=== PATIENT | male | born 1945 | race Caucasian/White ===

== ENCOUNTER 2018-04-13 20:04 | Inpatient (IN) ==
--- NOTE | 2018-04-13 21:08 | DR.GENAD ---
HPI - PCP Primary Care Physician: PARVEEN - HPI Comment HPI Comment: HISTORY BELOW. - Complaint/Symptoms Chief Complaint Doctors Comments: PATIENT OVERDOSE ON KLONAPIN. PATIENT IS CONFUSE AND ATAXIC. HE IS CONFUSE. HAVE N/V FOR FEW DAYS. TOOK OVERDOSE OF HIS MEDICATION TO MAKE HIM FEEL BETTER. HAVE HISTOEY OF DRUG DEPENDENCY. Chief Complaint:: FAMILY STATES HE GOT KLONOPIN FILLED A COUPLE DAYS AGO AND NOW THERE IS ONE LEFT IN THE BOTTLE, PT STATES HE FLUSHED MEDS DOWN THE TOILET BUT FAMIL STATES NO, PTS PUPILS ARE PIN POINT. PT FELL TWICE TODAY, ABRASION NOTED TO LEFT ARM FAMILY STATES HE BUMPED HEAD ALSO. STATES WAS SEEN IN [facility] BUT SENT HOME. Self Treatment fo Chief Complaint: KLONOPIN - Nurses notes reviewed Nurses Notes Review: Yes - Source History Provided: Patient - Mode of Arrival Mode of Arrival: Ambulatory - Timing Onset of Chief Complaint: 04/13/18 Came on: Suddenly - Duration Duration: Constant Duration: Days - Severity Severity: Moderate PMH - PMH Past Medical History: Yes Past Medical History: Anxiety, Depression, Hypertension, Kidney Stones Past Medical History Comment: 4 DETOXES. ULCERATIVE COLITIS. LOW POTASSIUM Past Surgical History: Yes Surgical History: Lithotripsy Past Surgical History Comment: LEFT KNEE. HERNIA - Family History History of Family Medical Conditions: No (UNK) Family Medical History: Hypertension - Social History Does patient currently use any type of tobacco product: No Have you used tobacco products in the last 12 months: No Type of Tobacco Use: None Does any household member use tobacco: No Alcohol Use: None Do you use any recreational Drugs:: No Lives With: Family Lives Where: Home - infectious screening In the last 2 months have you had wt loss of >10#?: NO Have you had fever, night sweats or hemotysis?: No Have you traveled outside the country in the last 6 months?: No Isolation: Standard ROS - Review of Systems Constitutional: No Symptoms Reported Eyes: No Symptoms Reported ENTM: No Symptoms Reported. negative: Ear Pain, Nose Discharge, Nose Congestion , Throat Pain Respiratoy: Non-Productive Cough. negative: Productive Cough, Short of Breath, Wheezing, Hemoptysis Cardiovascular: No Symptoms Reported Gastrointestinal/Abdominal: Abdominal Pain, Diarrhea Genitourinary: No Symptoms Reported Neurological: Headache, Weakness, Dizziness, Problems Walking Musculoskeletal: No Symptoms Reported Integumentary: No Symptoms Reported Hematologic/Lymphatic: No Symptoms Reported Endocrine: No Symptoms Reported All Other Systems: Reviewed and Negative PE - Vital Signs Vitals: Temperature 97.7 F Pulse Rate 50 Respiratory Rate 16 Blood Pressure [Right Arm] 140/74 Blood Pressure 140/65 O2 Sat by Pulse Oximetry 98 - General Limitations: No Limitations General Appearance: Alert - Head Head Exam: Normal Inspection - Eyes Eye exam: Normal Appearance - ENT ENT Exam: Normal External Ear Exam External Ear Exam: Normal External Inspection TM/Canal Exam: Bilateral Normal Nose Exam: Normal Nose Exam Mouth Exam: Normal Inspection Throat Exam: Normal Inspection - Neck Neck Exam: Trachea Midline - Chest Chest Inspection: Symmetric Chest Wall Rise - Respiratory Respiratory Exam: Normal Lung Sounds Bilat Respiratory Exam: Bilateral Rhonchi, Lower Rhonchi - Cardiovascular Cardiovascular Exam: Bradycardia - Abdominal Exam Abdominal Exam: Normal Bowel Sounds, Soft. negative: Tenderness - Extremities Extremities Exam: Normal Inspection - Neurologic Neurological Exam: Alert, Oriented X3 - Psychiatric Psychiatric Exam: Depressed, Anxious - Skin Skin Exam: Normal Color MDM - Additional Information Additional Information Obtained From: Family - Differential Diagnosis Differential Diagnosis: DEHYDRATION, DRUG OVERDISE, DEPRESSION ABDOMINAL PAIN Course - Treatment Treatment: SEE ORDERS. - Consultation Consultation Comments: DISCUSS PATIENT WITH DR. SAINI. HE WILL ADMIT PATIENT. - Education/Counseling Education/Counseling: Patient, Family, Education Educated On: Diagnosis, Needs for Follow Up ROR - Labs Reviewed Laboratory Results Reviewed?: Yes Result Diagrams: 04/14/18 05:27 04/14/18 05:27 Laboratory: WBC 5.2 X10^3/uL (3.6-10.0) 04/13/18 21:14 RBC 4.73 X10^6/uL (4.7-6.0) 04/13/18 21:14 Hgb 11.4 g/dL (13.5-18.0) L 04/13/18 21:14 Hct 35.9 % (42.0-54.0) L 04/13/18 21:14 MCV 75.9 fL (80.0-100.0) L 04/13/18 21:14 MCH 24.2 pg (27.0-34.0) L 04/13/18 21:14 MCHC 31.9 g/dL (33.0-35.0) L 04/13/18 21:14 RDW 20.6 % (11.6-16.5) H 04/13/18 21:14 Plt Count 289 X10^3/uL (150.0-450.0) 04/13/18 21:14 Plt Count Comment Adequate (ADEQUATE) 04/13/18 21:14 MPV 7.7 fL (7.4-11.0) 04/13/18 21:14 Neut % (Auto) 61.8 % (42.0-75.0) 04/13/18 21:14 Lymph % (Auto) 27.3 % (21.0-51.0) 04/13/18 21:14 [place] % (Auto) 9.4 % (0.0-13.0) 04/13/18 21:14 Eos % (Auto) 0.7 % (0.9-2.9) L 04/13/18 21:14 Baso % (Auto) 0.8 % (0.2-1.0) 04/13/18 21:14 Neut # (Auto) 3.2 x10^3/uL (2.2-4.8) 04/13/18 21:14 Lymph # (Auto) 1.4 X10^3/uL (1.3-2.9) 04/13/18 21:14 [place] # (Auto) 0.5 x10^3/uL (0.3-0.8) 04/13/18 21:14 Eos # (Auto) 0.0 x10^3/uL (0.0-0.2) 04/13/18 21:14 Baso # (Auto) 0.0 X10^3/uL (0.0-0.1) 04/13/18 21:14 Absolute Nucleated RBC 0.0 /100WBC 04/13/18 21:14 Plt Morphology Comment Normal (NORMAL) 04/13/18 21:14 RBC Morphology Abnormal (NORMAL) 04/13/18 21:14 Anisocytosis 1+ A 04/13/18 21:14 Sodium 140 mmol/L (136-145) 04/13/18 21:14 Corrected Sodium TNP 04/13/18 21:14 Potassium 2.9 mmol/L (3.5-5.1) L* 04/13/18 21:14 Chloride 105 mmol/L (98-107) 05/29/18 21:14 Carbon Dioxide 26.9 mmol/L (21-32) 04/13/18 21:14 BUN 23 mg/dL (7-18) H 04/13/18 21:14 Creatinine 2.35 mg/dL (0.70-1.30) H 04/13/18 21:14 Est GFR (MDRD) Af Amer 35 (>60) L 04/13/18 21:14 Est GFR (MDRD) Non-Af 29 (>60) L 04/13/18 21:14 Glucose 98 mg/dL (65-99) 04/13/18 21:14 Calcium 8.3 mg/dL (8.5-10.1) L 04/13/18 21:14 Corrected Calcium 9.1 mg/dL (8.5-10.1) 04/13/18 21:14 Magnesium 2.3 mg/dL (1.7-2.9) 04/13/18 21:14 Iron 50 ug/dL (50-175) 04/13/18 21:14 Total Bilirubin 0.40 mg/dL (0.2-1.0) 04/13/18 21:14 AST 6 Units/L (15-37) L 04/13/18 21:14 ALT 10 Units/L (12-78) L 04/13/18 21:14 Alkaline Phosphatase 84 Units/L (46-116) 04/13/18 21:14 Creatine Kinase 25 Units/L (39-308) L 04/13/18 21:14 CK-MB (CK-2) < 1.0 ng/mL (0-4.0) 04/13/18 21:14 CK/CKMB % Calc 4.0 % (<4) 04/13/18 21:14 Troponin I < 0.02 ng/mL (0-1.5) 04/13/18 21:14 Total Protein 6.5 g/dL (6.4-8.2) 04/13/18 21:14 Albumin 3.0 g/dL (3.4-5.0) L 04/13/18 21:14 Globulin 3.5 g/dL (2.5-4.5) 04/13/18 21:14 Albumin/Globulin Ratio 0.9 Ratio (1.1-2.1) L 04/13/18 21:14 Amylase 71 Units/L (25-115) 04/13/18 21:14 Lipase 173 Units/L (73-393) 04/13/18 21:14 Specimen Type Clean catch urine 04/13/18 21:36 Urine Color Yellow (YELLOW) 04/13/18 21:36 Urine Appearance Clear (CLEAR) 04/13/18 21:36 Urine pH 6.0 (5.0 - 8.0) 04/13/18 21:36 Ur Specific [place] 1.010 (1.000-1.030) 04/13/18 21:36 Urine Protein 1+ (NEGATIVE) 04/13/18 21:36 Urine Glucose (UA) Negative (NEGATIVE) 04/13/18 21:36 Urine Ketones Negative (NEGATIVE) 04/13/18 21:36 Urine Occult Blood Negative (NEGATIVE) 04/13/18 21:36 Urine Nitrite Negative (NEGATIVE) 04/13/18 21:36 Urine Bilirubin Negative (NEGATIVE) 04/13/18 21:36 Urine Urobilinogen Normal (NORMAL) 04/13/18 21:36 Ur Leukocyte Esterase 1+ (NEGATIVE) 04/13/18 21:36 Urine RBC None seen /HPF (NONE SEEN) 04/13/18 21:36 Urine WBC 3-5 /HPF (NONE SEEN) 04/13/18 21:36 Ur Squamous Epith Cells Few /HPF (NEGATIVE) 04/13/18 21:36 Urine Bacteria Trace /HPF (NEGATIVE) 04/13/18 21:36 Hyaline Casts Few /LPF (NEGATIVE) 04/13/18 21:36 Urine Mucus Few /HPF (NEGATIVE) 04/13/18 21:36 Ur Culture Indicated? No/not indicated 04/13/18 21:36 Salicylates < 2.8 mg/dL (2.8-20) L 04/13/18 21:14 Urine Opiates Screen Negative (NEG=<300) 04/13/18 21:36 Urine Methadone Screen Negative (NEG=<300) 04/13/18 21:36 Acetaminophen 0.0 ug/mL (10-30) L 04/13/18 21:14 Ur Barbiturates Screen Negative (NEG=<200) 04/13/18 21:36 Ur Phencyclidine Scrn Negative (NEG=<25) 04/13/18 21:36 Ur Amphetamines Screen Negative (NEG=<1000) 04/13/18 21:36 U Benzodiazepines Scrn Positive (NEG=<200) 04/13/18 21:36 Urine Cocaine Screen Negative (NEG=<300) 04/13/18 21:36 U Marijuana (THC) Screen Negative (NEG=<50) 04/13/18 21:36 Ethyl Alcohol mg/dL < 3 mg/dL (0-19.9) 04/13/18 21:14 - XRAY XRAY Interpreted by: Radiologist XRAY Findings: REPORT DISCUSS WITH PATIENT. - EKG Rhythm: NSR (EKG NOTED) - Diagnosis Discharge Problem: Dehydration, Hypokalemia Drug overdose Qualifiers: Encounter type: initial encounter Injury intent: undetermined intent Qualified Code(s): T50.904A - Poisoning by unspecified drugs, medicaments and biological substances, undetermined, initial encounter - Discharge Plan Disposition: ADMITTED INPATIENT Condition: Stable - Follow ups/Referrals - Instructions
[2018-04-13 21:26] LABS: BASOPHILS % (AUTO) 0.8 % (0.2-1.0); EOSINOPHILS % (AUTO) 0.7 % (0.9-2.9); HEMATOCRIT 35.9 % (42.0-54.0); HEMOGLOBIN 11.4 g/dL (13.5-18.0); LYMPHOCYTES # (AUTO) 1.4 X10^3/uL (1.3-2.9); LYMPHOCYTES % (AUTO) 27.3 % (21.0-51.0); MEAN CORPUSCULAR HEMOGLOBIN 24.2 pg (27.0-34.0); MEAN CORPUSCULAR HGB CONC 31.9 g/dL (33.0-35.0); MEAN CORPUSCULAR VOLUME 75.9 fL (80.0-100.0); MEAN PLATELET VOLUME 7.7 fL (7.4-11.0); MONOCYTES # (AUTO) 0.5 x10^3/uL (0.3-0.8); MONOCYTES % (AUTO) 9.4 % (0.0-13.0); NEUTROPHILS # (AUTO) 3.2 x10^3/uL (2.2-4.8); NEUTROPHILS % (AUTO) 61.8 % (42.0-75.0); PLATELET COUNT 289 X10^3/uL (150.0-450.0); RED BLOOD COUNT 4.73 X10^6/uL (4.7-6.0); RED CELL DISTRIBUTION WIDTH 20.6 % (11.6-16.5); WHITE BLOOD COUNT 5.2 X10^3/uL (3.6-10.0)
[2018-04-13 21:33] LABS: BLOOD ALCOHOL < 3 mg/dL (0-19.9)
[2018-04-13 21:36] LABS: IRON 50 ug/dL (50-175); SALICYLATE < 2.8 mg/dL (2.8-20)
[2018-04-13 21:45] LABS: BILIRUBIN,URINE NEGATIVE (NEGATIVE); BLOOD/HEMOGLOBIN,URINE NEGATIVE (NEGATIVE); GLUCOSE, URINE NEGATIVE (NEGATIVE); KETONES,URINE NEGATIVE (NEGATIVE); LEUKOCYTE ESTERASE ,URINE 1+ (NEGATIVE); NITRITES,URINE NEGATIVE (NEGATIVE); PROTEIN,URINE 1+ (NEGATIVE); UROBILINOGEN,URINE NORMAL (NORMAL)
[2018-04-13 21:46] LABS: ALANINE AMINOTRANSFERASE 10 Units/L (12-78); ALKALINE PHOSPHATASE 84 Units/L (46-116); AMYLASE 71 Units/L (25-115); ASPARTATE AMINO TRANSFERASE 6 Units/L (15-37); BLOOD UREA NITROGEN 23 mg/dL (7-18); CALCIUM 8.3 mg/dL (8.5-10.1); CARBON DIOXIDE 26.9 mmol/L (21-32); CHLORIDE 105 mmol/L (98-107); COR CA(FOR HYPOALB) 9.1 mg/dL (8.5-10.1); CREATINE KINASE 25 Units/L (39-308); CREATINE KINASE MB < 1.0 ng/mL (0-4.0); CREATININE 2.35 mg/dL (0.70-1.30); LIPASE 173 Units/L (73-393); MAGNESIUM 2.3 mg/dL (1.7-2.9); SODIUM 140 mmol/L (136-145); TOTAL PROTEIN 6.5 g/dL (6.4-8.2); TROPONIN I < 0.02 ng/mL (0-1.5); eGFR NON BLACK RACES 29 (>60)
[2018-04-13 21:55] LABS: APPEARANCE,URINE CLEAR (CLEAR); BACTERIA,URINE TRACE /HPF (NEGATIVE); COLOR,URINE YELLOW (YELLOW); HYALINE CASTS, URINE FEW /LPF (NEGATIVE); MUCUS,URINE FEW /HPF (NEGATIVE); RBC,URINE NONE SEEN /HPF (NONE SEEN); SQUAMOUS EPITHELIAL CELL,UR FEW /HPF (NEGATIVE)
[2018-04-13 22:09] LABS: ANISOCYTOSIS 1+; PLATELET MORPHOLOGY COMMENT NORMAL (NORMAL)
[2018-04-13] MEDS ORDERED: NS + KCL 20 MEQ/L 1,000 ML IV ONE (22:25)
--- NOTE | 2018-04-13 22:33 | CT ---
CT head without contrast Indication: Confusion. Ataxia Comparison: 07/27/2015 MR Technique: Axial images from the skullbase to the vertex without contrast. Coronal and sagittal refor mats provided. Findings: Bone windows shows no osseous lesion. Paranasal sinuses and mastoid air cells are clear. Th ere is no acute intracranial hemorrhage, mass or mass effect. No extra-axial fluid collections identi fied. Ventricles and sulci are normal. Impression: No acute intracranial hemorrhage or change from the prior appearing Reported By:
[2018-04-13] MEDS: NS + KCL 20 MEQ/L 1,000 ML IV SCH (22:41)
--- NOTE | 2018-04-13 22:49 | RAD ---
HISTORY: Abdominal pain Study: Acute abdominal series Comparison: None Findings: The lungs are clear without consolidation, effusion or pneumothorax. The cardiac and mediastinal con tours are within normal limits. Scattered air-fluid levels are seen within the colon. No evidence of bowel obstruction. No gross free intraperitoneal air. Some calcifications are seen projected over the right renal shadow. The bony s tructures are grossly intact. IMPRESSION: 1. No acute cardiopulmonary disease. 2. Scattered air-fluid levels within the colon that may reflect a nonspecific enteritis. No evidence of bowel obstruction. 3. Calcifications projected over the right renal shadow suggesting nonobstructing calculi. Reported By:
[2018-04-13] MEDS ORDERED: NS + KCL 20 MEQ/L 1,000 ML IV SCH (23:00)
[2018-04-13] MEDS ORDERED: NS + KCL 40 MEQ/L 1,000 ML IV SCH (23:00)
[2018-04-14 00:58] VITALS: BMI 24.2
[2018-04-14 05:45] LABS: BASOPHILS # (AUTO) 0.1 X10^3/uL (0.0-0.1); BASOPHILS % (AUTO) 1.1 % (0.2-1.0); EOSINOPHILS # (AUTO) 0.1 x10^3/uL (0.0-0.2); EOSINOPHILS % (AUTO) 0.8 % (0.9-2.9); HEMATOCRIT 34.1 % (42.0-54.0); LYMPHOCYTES # (AUTO) 1.9 X10^3/uL (1.3-2.9); LYMPHOCYTES % (AUTO) 25.2 % (21.0-51.0); MEAN CORPUSCULAR HEMOGLOBIN 24.4 pg (27.0-34.0); MEAN CORPUSCULAR HGB CONC 32.3 g/dL (33.0-35.0); MEAN CORPUSCULAR VOLUME 75.5 fL (80.0-100.0); MEAN PLATELET VOLUME 7.5 fL (7.4-11.0); MONOCYTES # (AUTO) 0.7 x10^3/uL (0.3-0.8); MONOCYTES % (AUTO) 9.3 % (0.0-13.0); NEUTROPHILS # (AUTO) 4.8 x10^3/uL (2.2-4.8); NEUTROPHILS % (AUTO) 63.6 % (42.0-75.0); PLATELET COUNT 243 X10^3/uL (150.0-450.0); RED BLOOD COUNT 4.52 X10^6/uL (4.7-6.0); RED CELL DISTRIBUTION WIDTH 20.5 % (11.6-16.5); WHITE BLOOD COUNT 7.5 X10^3/uL (3.6-10.0)
[2018-04-14] MEDS: NS + KCL 20 MEQ/L 1,000 ML IV SCH ×3 (06:03→21:56)
[2018-04-14 06:17] LABS: ALANINE AMINOTRANSFERASE 9 Units/L (12-78); ALBUMIN 2.8 g/dL (3.4-5.0); ALKALINE PHOSPHATASE 77 Units/L (46-116); ASPARTATE AMINO TRANSFERASE 7 Units/L (15-37); BLOOD UREA NITROGEN 23 mg/dL (7-18); CALCIUM 7.9 mg/dL (8.5-10.1); CARBON DIOXIDE 24.7 mmol/L (21-32); CHLORIDE 109 mmol/L (98-107); COR CA(FOR HYPOALB) 8.9 mg/dL (8.5-10.1); CREATININE 2.17 mg/dL (0.70-1.30); MAGNESIUM 2.1 mg/dL (1.7-2.9); SODIUM 142 mmol/L (136-145); eGFR NON BLACK RACES 32 (>60)
[2018-04-14 06:34] LABS: CKMB % 4.6 % (<4); CREATINE KINASE 22 Units/L (39-308); CREATINE KINASE MB < 1.0 ng/mL (0-4.0); TROPONIN I < 0.02 ng/mL (0-1.5)
[2018-04-14 06:41] LABS: ANISOCYTOSIS 1+; OVALOCYTES SLIGHT; PLATELET MORPHOLOGY COMMENT NORMAL (NORMAL); POIKILOCYTOSIS SLIGHT
--- NOTE | 2018-04-14 08:42 | DR.H&P ---
H&P - History & Physical for Day of: H&P Date: 04/13/18 - Chief Complaint Chief Complaint: AMS, ATAXIA, POSSIBLE KLONOPIN OVERDOSE - Allergies Allergies/Adverse Reactions: Allergies Allergy/AdvReac Type Severity Reaction Status Date / Time No Known Drug Allergies Allergy Verified 04/13/18 20:06 - History of Present Illness History of Present Illness: is a 72 year old patient of ours who presented to the emergency room with reports of a Klonapin overdose. Patients family reports patient had a sudden onset of confusion and ataxia. They report that patient has had nausea and vomiting for several days, therefore, patient reportedly took medications to make himself feel better. Family reports patient had prescription filled a couple days ago and there is now only one pill in the bottle. They report that patient does have a history of drug dependency. On examination, patient is noted with an abrasion to the left arm. Family reports that patient fell at home and also hit his head. On arrival, vitals were 97.7, 50, 16, 98% RA, 140/65. Labs were obtained. Abnormal Labs include the following : Hgb 11.4, Hct 35.9, MCV 75.9, MCH 24.2, MCHC 31.9, RDW 20.6, Potassium 2.9, BUN 23, Creatinine 2.35, GFR af 35, GFR non 29, Calcium 8.3, AST 6, ALT 10, Creatine Kinase 25, Albumin 3.0, A/G Ratio 0.9. Toxicology: Salicylates <2.8, Acetaminophen 0.0, Benzodiazepines Screen Positive. Urinalysis reported: Protein 1+, Leuk Est 1+, WBC 3-5, Bacteria Trace, Hyaline Casts Few, Mucus Few. EKG revealed: Sinus Bradycardia. Rate=44. Brain CT reported: No acute intracranial hemorrhage of change from the prior appearing. Abdomen X-Ray reported: No acute cardiopulmonary disease. Scattered air-fluid levels within the colon that may reflect a nonspecific enteritis. No evidence of bowel obstruction. Calcifications projected over the right renal shadow suggesting non-obstructing calculi. Patient was started on normal saline with 20meq potassium at 125ml/hr. He was admitted to the hospital for further evaluation and treatment. He was placed on continuous welding machine feeder and NIBP. We plan to follow up with AM labs and continue to monitor patient. - Past Medical History Past Medical History: Anxiety, Depression, Hypertension, Kidney Stones - Past Surgical History Surgical History: Lithotripsy - Family History Family Medical History: Hypertension - Social History Does patient currently use any type of tobacco product: No Have you used tobacco products in the last 12 months: No Type of Tobacco Use: None Does any household member use tobacco: No Alcohol Use: None Drug Use: None - Medications Home Medications: Allopurinol 1 tab PO DAILY 04/14/18 [History Confirmed 04/14/18] Clonazepam [KLONOPIN TAB 1 MG *] 1 mg PO BID 04/14/18 [History Confirmed ] Ferrous Sulfate 1 tab PO DAILY 04/14/18 [History Confirmed 04/14/18] Metoprolol Tartrate 0.5 tab PO Q12H 04/14/18 [History Confirmed 04/14/18] Potassium Chloride 1 tab PO DAILY 04/14/18 [History Confirmed 04/14/18] - Review of Systems Constitutional: No Symptoms Reported, Weakness Eyes: No Symptoms Reported ENT: No Symptoms Reported Respiratory: No Symptoms Reported Cardiovascular: No Symptoms Reported Gastrointestinal: No Symptoms Reported Genitourinary: No Symptoms Reported Musculoskeletal: No Symptoms Reported Skin: No Symptoms Reported, Wound Neurological: See HPI, Weakness, Incoordination, Confusion, Other (HEADACHE) - Physical Exam Vital Signs: Temperature 97.2 F Pulse Rate [Apical] 52 Pulse Rate [Right] 45 Pulse Rate 50 Respiratory Rate 15 Blood Pressure [Right Arm] 152/76 Blood Pressure 140/65 O2 Sat by Pulse Oximetry 98 Oriented: Not Oriented Eyes: Normal Nose: Normal Throat: Normal Respiratory: Rhonchi Throughout Cardiovascular: Normal. negative: S3, S4, Murmur : Normal Auscultation: Bowel Sounds: Normal Palpation: Normal Tenderness: Normal Skin: Wound (LEFT ARM ABRASION) Musculoskeletal: Normal Psychiatric: Other (ams) Mood Description: Calm Affect: Depressed Speech Pattern: Unclear, Inappropriate - Assessment/Plan (1) Drug overdose Qualifiers: Encounter type: initial encounter Injury intent: undetermined intent Qualified Code(s): T50.904A - Poisoning by unspecified drugs, medicaments and biological substances, undetermined, initial encounter Status: Acute Plan: normal saline with kcl 20meq at 125ml/hr, continue to monitor (2) Dehydration Status: Acute Plan: normal saline with kcl 20meq at 125ml/hr, continue to monitor (3) Hypokalemia Status: Acute Plan: normal saline with kcl 20meq at 125ml/hr, continue to monitor
[2018-04-14 11:45] LABS: CKMB % 5.3 % (<4); CREATINE KINASE 19 Units/L (39-308); CREATINE KINASE MB < 1.0 ng/mL (0-4.0); TROPONIN I < 0.02 ng/mL (0-1.5)
--- NOTE | 2018-04-14 19:31 | PCM.PROG ---
Progress Note - Progress Note for Day of Date: 04/14/18 - Subjective Subjective: WAS ADMITTED FOR A KLONOPIN OVERDOSE, DEHYDRATION, AND HYPOKALEMIA. TODAY, HE IS ALERT AND ORIENTED, LYING IN BED ON MORNING ROUNDS. HE REPORTS FEELING WELL TODAY AND VOICES NO COMPLAINTS. PATIENT DID ON EXAMINATION, HEART IS REGULAR IN RATE AND RHYTHM. BILATERAL LUNGS ARE NOTED WITH RHONCHI THROUGHOUT. ABDOMEN IS ROUND, SOFT, AND NON-TENDER WITH NORMAL BOWEL SOUNDS NOTED IN ALL QUADRANTS. HIS VITALS THIS MORNING ARE 97.2-52-15-98%- 152/76. LABS WERE OBTAINED. ABNORMAL LAB VALUES INCLUDE THE FOLLOWING: RBC 4.52 , HGB 11.0, HCT 34.1, POTASSIUM 3.3, CHLORIDE 109, BUN 23, CREATININE 2.17, CALCIUM 7.9, AST 7, ALT 9, TOTAL PROTEIN 6.0, ALBUMIN 2.8. CARDIAC ENZYMES WITHIN NORMAL LIMITS. HE IS CURRENTLY RECEIVING IV FLUIDS WITH 20MEQ KCL AT 125ML/HR. WE WILL CONTINUE WITH [facility] PLAN OF CARE TODAY AND REVIEW HOME MEDICATIONS. OTHERWISE, WE PLAN TO FOLLOW UP WITH AM LABS AND CONTINUE TO MONITOR PATIENT. - Past Medical Family Social History Past Med/Fam/Surg Hx: No changes since H&P Allergies: Allergies No Known Drug Allergies Allergy (Verified 04/13/18 20:06) - Review of Systems ROS: No change since H&P - Vital Signs and I&O's Vital Signs: Temperature 98.0 F Pulse Rate [Apical] 65 Pulse Rate [Right] 45 Pulse Rate 50 Respiratory Rate 22 Blood Pressure [Right Arm] 170/81 Blood Pressure 140/65 O2 Sat by Pulse Oximetry 100 Intake and Output: Intake & Output 04/12/18 04/13/18 04/14/18 04/15/18 11:59 11:59 11:59 11:59 Intake Total 1450 Output Total 1100 Balance 350 - Physical Exam Oriented: Normal Eyes: Normal Ear: Normal Nose: Normal Throat: Normal Respiratory: Generalized, Rhonchi Cardiovascular: Normal. negative: S3, S4, Murmur : Normal Auscultation: Bowel Sounds: Normal Palpation: Normal Tenderness: Normal Skin: Wound (LEFT ARM ABRASION) Musculoskeletal: Normal Psychiatric: Normal Mood Description: Calm Affect: Normal Speech Pattern: Clear, Appropriate - Laboratory and Diagnostics Result Diagrams: 04/14/18 05:27 04/14/18 05:27 Labs: Laboratory WBC 7.5 X10^3/uL (3.6-10.0) 04/14/18 05:27 RBC 4.52 X10^6/uL (4.7-6.0) L 04/14/18 05:27 Hgb 11.0 g/dL (13.5-18.0) L 04/14/18 05:27 Hct 34.1 % (42.0-54.0) L 04/14/18 05:27 MCV 75.5 fL (80.0-100.0) L 04/14/18 05:27 MCH 24.4 pg (27.0-34.0) L 04/14/18 05:27 MCHC 32.3 g/dL (33.0-35.0) L 04/14/18 05:27 RDW 20.5 % (11.6-16.5) H 04/14/18 05:27 Plt Count 243 X10^3/uL (150.0-450.0) 04/14/18 05:27 Plt Count Comment Adequate (ADEQUATE) 04/14/18 05:27 MPV 7.5 fL (7.4-11.0) 04/14/18 05:27 Neut % (Auto) 63.6 % (42.0-75.0) 04/14/18 05:27 Lymph % (Auto) 25.2 % (21.0-51.0) 04/14/18 05:27 [place] % (Auto) 9.3 % (0.0-13.0) 04/14/18 05:27 Eos % (Auto) 0.8 % (0.9-2.9) L 04/14/18 05:27 Baso % (Auto) 1.1 % (0.2-1.0) H 04/14/18 05:27 Neut # (Auto) 4.8 x10^3/uL (2.2-4.8) 04/14/18 05:27 Lymph # (Auto) 1.9 X10^3/uL (1.3-2.9) 04/14/18 05:27 [place] # (Auto) 0.7 x10^3/uL (0.3-0.8) 04/14/18 05:27 Eos # (Auto) 0.1 x10^3/uL (0.0-0.2) 04/14/18 05:27 Baso # (Auto) 0.1 X10^3/uL (0.0-0.1) 04/14/18 05:27 Absolute Nucleated RBC 0.0 /100WBC 04/14/18 05:27 Plt Morphology Comment Normal (NORMAL) 04/14/18 05:27 RBC Morphology Abnormal (NORMAL) 04/14/18 05:27 Poikilocytosis Slight A 04/14/18 05:27 Anisocytosis 1+ A 04/14/18 05:27 Ovalocytes Slight A 04/14/18 05:27 Sodium 142 mmol/L (136-145) 04/14/18 05:27 Corrected Sodium TNP 04/14/18 05:27 Potassium 3.3 mmol/L (3.5-5.1) L 04/14/18 05:27 Chloride 109 mmol/L (98-107) H 04/14/18 05:27 Carbon Dioxide 24.7 mmol/L (21-32) 04/14/18 05:27 BUN 23 mg/dL (7-18) H 04/14/18 05:27 Creatinine 2.17 mg/dL (0.70-1.30) H 04/14/18 05:27 Est GFR (MDRD) Af Amer 39 (>60) L 04/14/18 05:27 Est GFR (MDRD) Non-Af 32 (>60) L 04/14/18 05:27 Glucose 82 mg/dL (65-99) 04/14/18 05:27 Calcium 7.9 mg/dL (8.5-10.1) L 04/14/18 05:27 Corrected Calcium 8.9 mg/dL (8.5-10.1) 04/14/18 05:27 Magnesium 2.1 mg/dL (1.7-2.9) 04/14/18 05:27 Iron 50 ug/dL (50-175) 04/13/18 21:14 Total Bilirubin 0.40 mg/dL (0.2-1.0) 04/14/18 05:27 AST 7 Units/L (15-37) L 04/14/18 05:27 ALT 9 Units/L (12-78) L 04/14/18 05:27 Alkaline Phosphatase 77 Units/L (46-116) 04/14/18 05:27 Creatine Kinase 19 Units/L (39-308) L 04/14/18 11:15 CK-MB (CK-2) < 1.0 ng/mL (0-4.0) 04/14/18 11:15 CK/CKMB % Calc 5.3 % (<4) 04/14/18 11:15 Troponin I < 0.02 ng/mL (0-1.5) 04/14/18 11:15 Total Protein 6.0 g/dL (6.4-8.2) L 04/14/18 05:27 Albumin 2.8 g/dL (3.4-5.0) L 04/14/18 05:27 Globulin 3.2 g/dL (2.5-4.5) 04/14/18 05:27 Albumin/Globulin Ratio 0.9 Ratio (1.1-2.1) L 04/14/18 05:27 Amylase 71 Units/L (25-115) 04/13/18 21:14 Lipase 173 Units/L (73-393) 04/13/18 21:14 Specimen Type Clean catch urine 04/13/18 21:36 Urine Color Yellow (YELLOW) 04/13/18 21:36 Urine Appearance Clear (CLEAR) 04/13/18 21:36 Urine pH 6.0 (5.0 - 8.0) 04/13/18 21:36 Ur Specific [place] 1.010 (1.000-1.030) 04/13/18 21:36 Urine Protein 1+ (NEGATIVE) 04/13/18 21:36 Urine Glucose (UA) Negative (NEGATIVE) 04/13/18 21:36 Urine Ketones Negative (NEGATIVE) 04/13/18 21:36 Urine Occult Blood Negative (NEGATIVE) 04/13/18 21:36 Urine Nitrite Negative (NEGATIVE) 04/13/18 21:36 Urine Bilirubin Negative (NEGATIVE) 04/13/18 21:36 Urine Urobilinogen Normal (NORMAL) 04/13/18 21:36 Ur Leukocyte Esterase 1+ (NEGATIVE) 04/13/18 21:36 Urine RBC None seen /HPF (NONE SEEN) 04/13/18 21:36 Urine WBC 3-5 /HPF (NONE SEEN) 04/13/18 21:36 Ur Squamous Epith Cells Few /HPF (NEGATIVE) 04/13/18 21:36 Urine Bacteria Trace /HPF (NEGATIVE) 04/13/18 21:36 Hyaline Casts Few /LPF (NEGATIVE) 04/13/18 21:36 Urine Mucus Few /HPF (NEGATIVE) 04/13/18 21:36 Ur Culture Indicated? No/not indicated 04/13/18 21:36 Salicylates < 2.8 mg/dL (2.8-20) L 04/13/18 21:14 Urine Opiates Screen Negative (NEG=<300) 04/13/18 21:36 Urine Methadone Screen Negative (NEG=<300) 04/13/18 21:36 Acetaminophen 0.0 ug/mL (10-30) L 04/13/18 21:14 Ur Barbiturates Screen Negative (NEG=<200) 04/13/18 21:36 Ur Phencyclidine Scrn Negative (NEG=<25) 04/13/18 21:36 Ur Amphetamines Screen Negative (NEG=<1000) 04/13/18 21:36 U Benzodiazepines Scrn Positive (NEG=<200) 04/13/18 21:36 Urine Cocaine Screen Negative (NEG=<300) 04/13/18 21:36 U Marijuana (THC) Screen Negative (NEG=<50) 04/13/18 21:36 Ethyl Alcohol mg/dL < 3 mg/dL (0-19.9) 04/13/18 21:14 - Plan (1) Drug overdose Status: Acute Qualifiers: Encounter type: initial encounter Injury intent: undetermined intent Qualified Code(s): T50.904A - Poisoning by unspecified drugs, medicaments and biological substances, undetermined, initial encounter Plan: normal saline with kcl 20meq at 125ml/hr, continue to monitor (2) Dehydration Status: Acute Plan: normal saline with kcl 20meq at 125ml/hr, continue to monitor (3) Hypokalemia Status: Acute Plan: normal saline with kcl 20meq at 125ml/hr, continue to monitor
[2018-04-14] MEDS ORDERED: RESTORIL CAP 15 MG PO PRN (20:20)
[2018-04-15] MEDS: NS + KCL 20 MEQ/L 1,000 ML IV SCH ×2 (04:07→05:34)
[2018-04-15 05:38] LABS: BASOPHILS % (AUTO) 0.9 % (0.2-1.0); EOSINOPHILS % (AUTO) 0.7 % (0.9-2.9); HEMATOCRIT 30.8 % (42.0-54.0); HEMOGLOBIN 10.1 g/dL (13.5-18.0); LYMPHOCYTES # (AUTO) 1.5 X10^3/uL (1.3-2.9); LYMPHOCYTES % (AUTO) 33.9 % (21.0-51.0); MEAN CORPUSCULAR HEMOGLOBIN 24.9 pg (27.0-34.0); MEAN CORPUSCULAR HGB CONC 32.9 g/dL (33.0-35.0); MEAN CORPUSCULAR VOLUME 75.6 fL (80.0-100.0); MEAN PLATELET VOLUME 7.9 fL (7.4-11.0); MONOCYTES # (AUTO) 0.4 x10^3/uL (0.3-0.8); MONOCYTES % (AUTO) 9.9 % (0.0-13.0); NEUTROPHILS # (AUTO) 2.4 x10^3/uL (2.2-4.8); NEUTROPHILS % (AUTO) 54.6 % (42.0-75.0); PLATELET COUNT 236 X10^3/uL (150.0-450.0); RED BLOOD COUNT 4.08 X10^6/uL (4.7-6.0); RED CELL DISTRIBUTION WIDTH 20.4 % (11.6-16.5); WHITE BLOOD COUNT 4.4 X10^3/uL (3.6-10.0)
[2018-04-15 05:50] LABS: ALANINE AMINOTRANSFERASE 8 Units/L (12-78); ALBUMIN 2.5 g/dL (3.4-5.0); ALKALINE PHOSPHATASE 70 Units/L (46-116); ASPARTATE AMINO TRANSFERASE 8 Units/L (15-37); BLOOD UREA NITROGEN 18 mg/dL (7-18); CALCIUM 7.4 mg/dL (8.5-10.1); CARBON DIOXIDE 23.1 mmol/L (21-32); CHLORIDE 110 mmol/L (98-107); COR CA(FOR HYPOALB) 8.6 mg/dL (8.5-10.1); CREATININE 1.88 mg/dL (0.70-1.30); SODIUM 143 mmol/L (136-145); TOTAL PROTEIN 5.6 g/dL (6.4-8.2); eGFR NON BLACK RACES 38 (>60)
[2018-04-15 05:53] LABS: ANISOCYTOSIS 1+; PLATELET MORPHOLOGY COMMENT NORMAL (NORMAL)
[2018-04-15] MEDS ORDERED: POTASSIUM CHLORIDE LIQ 20 MEQ UDC PO PRN (08:12)
[2018-04-15] MEDS ORDERED: POTASSIUM CHL 60 MEQ/NS 0.45% 500 ML IV PRN (08:12)
[2018-04-15] MEDS ORDERED: POTASSIUM CHL 40 MEQ/NS 0.45% 500 ML IV PRN (08:12)
[2018-04-15] MEDS ORDERED: K-RIDER 10 MEQ/NS 100 ML 10 MEQ/100 ML BAG IV PRN (08:12)
[2018-04-15] MEDS ORDERED: K-LYTE EFFERVESCENT PO PRN (08:12)
[2018-04-15] MEDS: MAGNESIUM SULFATE 1 GRAM/100 mL PREMIX 1 GM/100 ML BAG IV PRN ×2 (08:30→09:32)
[2018-04-15 13:23] VITALS: BP 183/80
--- NOTE | 2018-05-06 23:51 | DR.CARTERD ---
- Discharge Summary for: Discharge Summary for Date of:: 04/15/18 - Admission Date Date of Admission: 04/13/18 - Admission Diagnoses Admission Diagnosis: (1) Drug overdose (2) Dehydration (3) Hypokalemia - Discharge Date Discharge Date: 04/15/18 - Discharge Diagnoses Discharge Diagnosis: (1) Drug overdose (2) Dehydration (3) Hypokalemia - Hospital Course Hospital Course: Mr. Causey is a 72 year old patient of ours who presented to the emergency room with reports of a Klonopin overdose. Patients family reported patient had a sudden onset of confusion and ataxia. They reported that patient had nausea and vomiting for several days, therefore, patient reportedly took medications to make himself feel better. Family reported patient had prescription filled a couple days prior and there was only one pill in the bottle. They reported that patient had a history of drug dependency. On examination, patient was noted with an abrasion to the left arm. Family reported that patient fell at home and also hit his head. On arrival, vitals were 97.7, 50, 16, 98% RA, 140/ 65. Labs were obtained. Abnormal Labs included the following: Hgb 11.4, Hct 35.9 , MCV 75.9, MCH 24.2, MCHC 31.9, RDW 20.6, Potassium 2.9, BUN 23, Creatinine 2.35, GFR af 35, GFR non 29, Calcium 8.3, AST 6, ALT 10, Creatine Kinase 25, Albumin 3.0, A/G Ratio 0.9. Toxicology: Salicylates <2.8, Acetaminophen 0.0, Benzodiazepines Screen Positive. Urinalysis reported: Protein 1+, Leuk Est 1+, WBC 3-5, Bacteria Trace, Hyaline Casts Few, Mucus Few. EKG revealed: Sinus Bradycardia, rate=44. Brain CT reported: No acute intracranial hemorrhage of change from the prior appearing. Abdomen X-Ray reported: No acute cardiopulmonary disease. Scattered air-fluid levels within the colon that may reflect a nonspecific enteritis. No evidence of bowel obstruction. Calcifications projected over the right renal shadow suggesting non-obstructing calculi. Patient was started on normal saline with 20meq potassium at 125ml/ hr. He was admitted to the hospital for further evaluation and treatment. He was placed on continuous ultrasound manager and NIBP. We continued to monitor patient. Day two, potassium was 3.3. We continued IV fluids with potassium. Patient was doing better. On day three, patient reported he felt well. He was alert and oriented. Family at bedside. Vital signs stable. Labs wnl. We planned for discharge. Instructions for medications and follow up were discussed with patient and family, both voiced understanding. Patient discharged home in stable condition with family. - Discharge Medications Discharge Medications: Home Medication List Ferrous Sulfate 1 tab PO DAILY 04/14/18 [History] allopurinol 1 tab PO DAILY 04/14/18 [History] clonazepam 1 mg PO BID 04/14/18 [History] metoprolol tartrate 0.5 tab PO Q12H 04/14/18 [History] potassium chloride 1 tab PO DAILY 04/14/18 [History] duloxetine 30 mg PO DAILY #30 cap 04/15/18 [Rx] paroxetine HCl 20 mg PO DAILY #30 tab 04/15/18 [Rx] Prescriptions: duloxetine Jett Pedraza paroxetine HCl Jett Pedraza - Discharge Disposition Discharge Disposition: Patient is to follow up in our office in one week.
== END 2018-04-15 13:45 | disposition home or self-care (01) | DRG 918 ==
LOC: ER 20:22 → ICU 23:47
PROVIDERS: ADMIT Internal Medicine; ATTEND Internal Medicine
DX: R27.0 Ataxia, unspecified; T42.4X1A Poisoning by benzodiazepines, accidental (unintentional), initial encounter; E87.6 Hypokalemia; F41.8 Other specified anxiety disorders; R94.31 Abnormal electrocardiogram [ECG] [EKG]; F32.89 Other specified depressive episodes; E86.0 Dehydration; I10 Essential (primary) hypertension; Z66 Do not resuscitate; Z91.81 History of falling; R41.82 Altered mental status, unspecified
CPT/HCPCS: 36415; 70450; 74022; 80053; 80307; 80320; 81001; 82150; 82550; 82553; 83540; 83690; 83735; 84484; 85025; 93005; 96365; 99284; A4222; G0434; G6038; G6039; G6040; J3475